=== PATIENT | female | born 1975 | race Caucasian/White ===

== ENCOUNTER 2017-05-07 08:53 | Emergency (ER) | payer OTHER ==
[~2017-05-07] VITALS: Ht 170.2 cm; Wt 120.2 kg
[~2017-05-07 08:53] MED LIST: AMITRIPTYLINE 550 MG PO; ASPIRIN 81MG TA81 MG PO; B12 INJ.,1000 MCG/M IM; BYETTA250 MCG/ML SC; CIPRO 500MG TA500 MG PO; CLINDAMYCIN150 MG PO; FLEXERIL10 MG PO; FOLIC ACID 1MG T1 MG PO; GLIMEPIRIDE 2MG2 MG PO; GLUCAGEN HYPOKIT1 MG IJ; IMITREX100 MG PO; KEFLEX 500MG.500 MG PO; LANTUS INS100 UNITS/ SC; LISINOPRIL 10MG10 MG PO; LOPID 600MG TA600 MG OR; LORATADINE 10MG10 M1 PO; LYRICA 100 MG100 MG PO; METFORMIN1000 MG PO; MUCINEX1200 MG PO; OMEPRAZOLE20 MG PO; PROMETHAZINE D118 ML PO; PROVENTIL0.09 MG/A1 IH; PYRIDIUM200 M2 PO; QVAR0.08 MG/AC IH; VENTOLIN H0.09 MG/AC IH; VITAMIN D22000 IU PO
--- OUTSIDE RECORDS SUMMARY | 2017-05-07 08:57 | External Medical Summary Rpt | CCD ---
Author Author , ASHLEE ROSADO Address Unknown Phone [email or web address] Purpose Continuity of Care Document - through 2016
--- OUTSIDE RECORDS SUMMARY | 2017-05-07 08:57 | External Medical Summary Rpt | CCD ---
Demographics Preferred Language Estonian Marital Status Unknown Orthodoxy Affiliation Unknown Race Unknown Ethnic Group Unknown Author Author , ASHLEE ROSADO Address Unknown Phone Immunization No patient found.
--- OUTSIDE RECORDS SUMMARY | 2017-05-07 08:57 | External Medical Summary Rpt | CCD ---
Author Author SAVANAH Address Unknown Phone [email or web address] Purpose Continuity of Care Document - through 2016
--- OUTSIDE RECORDS SUMMARY | 2017-05-07 08:57 | External Medical Summary Rpt | CCD ---
Author Author SAVANAH Address Unknown Phone [email or web address] Purpose Continuity of Care Document - through 2016
--- OUTSIDE RECORDS SUMMARY | 2017-05-07 08:57 | External Medical Summary Rpt | CCD ---
Demographics Preferred Language Yoruba Marital Status Unknown Evangelical Affiliation Unknown Race Unknown Ethnic Group Unknown Author Author , ASHLEE ROSADO Address Unknown Phone Immunization No patient found.
--- OUTSIDE RECORDS SUMMARY | 2017-05-07 08:57 | External Medical Summary Rpt ---
Author Author ASHLEE Morin, [employer] Address Unknown Phone Unavailable
--- OUTSIDE RECORDS SUMMARY | 2017-05-07 08:57 | External Medical Summary Rpt | CCD ---
Author Author , ASHLEE ROSADO Address Unknown Phone Purpose Continuity of Care Document - through 2016
[2017-05-07] MEDS ORDERED: BACTRIM DS 8001 TA1 PO (09:28)
[2017-05-07] MEDS ORDERED: PYRIDIUM200 M2 PO (09:28)
--- NOTE | 2017-05-07 09:29 | Urgent Treatment Center Report ---
History of Present Issue Date/Time Seen by Provider 05/07/17 09 Visit Reason Pt arrived:Walked Presenting Problem:PT STATES SHE FEELS LIKE SHE HAS A BLADDER INFECTION PT C/O PAIN AND URGENCY Location if Accident: Onset of symptoms date/time:/ or onset unknown for:MEDICAL HX UNKNOWN Have you (or family members/close friends) recently traveled outside the [place]? N If Yes, where/when: Have you had exposure to infectious disease within the past month? TB? Other? Specify: c/o "I think a bladder infection". Here visiting from [place] with dysuria and hematuria, small amount seen only occasionally. Started w/ intermittent hematuria 4 days ago. Burning followed soon after and the worst at end urination. Urinary frequency and urgency started yesterday. Urine cloudy, no odor. No fever, vomiting, abdominal pain. Hasn't taken or tried anything for symptoms. Also requesting refill on albuterol inhaler used for asthma. No symptoms currently but ran out and doesn't return to [place] until 05/15. Afraid not to have a rescue inhaler. Source patient Exam Limitations no limitations ALLERGIES Coded Allergies: fluoxetine (From PROZAC) (Mild, NA-NAUSEA 08/30/15) ketorolac (From TORADOL) (Mild, NA-NAUSEA 08/30/15) duloxetine (From CYMBALTA) (08/30/15) Home Medications Active Scripts Phenazopyridine HCl (Pyridium) 200 MG PO TID #10 TAB Prov: 08/30/15 ALBUTEROL (Proventil Hfa Inhaler) 1-2 PUFF IH Q4-6H PRN PRN SOA, wheezing #1 CAN Prov: 08/26/16 PROMETHAZINE/DEXTROMETHORPHAN (Promethazine-Dm Syrup) 10 ML PO QHSP PRN cough #60 ML Prov: 08/26/16 Guaifenesin (Mucinex) 1,200 MG PO BID #14 TAB Prov: 08/26/16 Reported Medications ERGOCALCIFEROL (VITAMIN D2) (Vitamin D2) 50,000 IUNITS PO WEEKLY LISINOPRIL (Lisinopril) 10 MG PO DAILY ASPIRIN (Aspirin) 81 MG PO DAILY Gemfibrozil (Lopid 600MG Tablet (Generic)) 600 MG OR DAILY Pregabalin (Lyrica 100Mg) 150 MG PO TID Amitriptyline Hcl (Amitriptyline) 100 MG PO QHS METFORMIN HCL (Metformin) 1,000 MG PO BID FOLIC ACID (Folic Acid) 1 MG PO DAILY Vitamin B12 (Cyanocobalamin Injection) 1,000 MCG IM WEEKLY Loratadine (Loratadine 10MG Tablet) 10 MG PO DAILY Omeprazole (Omeprazole 20MG) 20 MG PO DAILY Insulin Glargine (Lantus Insulin Vial) 40 UNITS SC QHS ALBUTEROL (Ventolin Hfa) 2 PUFFS IH Q6H6 GLUCAGON,HUMAN RECOMBINANT (Glucagen) 1 MG IJ DAILYP PRN DIABETES Cyclobenzaprine Hcl (Flexeril) 5 MG PO DAILY History Medical History General CAD? No Angina: No [place]: No Hypertension? Yes Hyperlipidemia? No CHF? No DVT? No PE? No COPD? Yes Asthma? Yes Anemia? No GERD? No Gastric ulcers? No GI Bleed? No Hernia? No Thyroid Problems? No Hypothyroidism? No CVA? No Seizures? No Diabetes? Yes Insulin Dependent: Yes Insulin Pump: No Home FSBS? No Renal Insuffiency? No UTI? No Stones? Yes BPH? No GB Disease: No Nephritic Syndrome? No Asplenia? No Hepatitis? No Sickle Cell Disease? No Arthritis? No Migraines? No Cataracts? No Glaucoma? No MRSA? No HIV? No TB? No Anxiety? No Depression? No Cancer? No Immunization HX DT/Tetanus > 10 Years Ago Surgical Hx Previous Surgery?Y HYSTERECTOMY Exploratory Laparoscopy Social History Smoking Hx Smoker: Current Every Day Smoker Tobacco: Yes Type Cigarettes Packs/day < 1 Pack Alcohol Alcohol: No Review of Systems All Other Systems Reviewed and Negative Constitutional see HPI, denies chills, denies malaise Respiratory denies cough, denies shortness of breath, denies wheezing Cardiovascular denies chest pain Gastrointestinal see HPI, denies nausea Genitourinary see HPI, hesitancy. denies: discharge, abnormal vaginal bleeding. Musculoskeletal denies back pain Psychiatric/Neurological denies headache Physical Exam Vital Signs Vital Signs Date Time Temp Pulse Resp B/P Pulse O2 O2 Flow FiO2 Ox Delivery Rate 05/07 0902 98.3 111 20 125/79 96 General Appearance no apparent distress, obese Respiratory Status No: respiratory distress, productive cough, non productive cough. Cardiovascular no peripheral edema Gastrointestinal normal bowel sounds, non tender, soft, no suprapubic tenderness , no bladder distention Back no CVA tenderness Neurologic alert, oriented x 3 Skin normal color, warm/dry Medical Decision Making LABS/Meds/Orders Pt receiving controlled substance in ED? No Results/Orders Orders Procedure Date/time Status [facility] URINE DIPSTICK 05/07 927 Active CULTURE, URINE 05/07 925 Active Departure Departure Time of Disposition 925 Disposition DC Home or Self Care(routine) Clinical Impression Primary Impression: UTI (urinary tract infection) Qualifiers: Urinary tract infection type: site unspecified Hematuria presence: with hematuria Qualified Code: N39.0 - Urinary tract infection, site not specified Secondary Impressions: History of asthma, Medication refill Condition STABLE Referrals NO REFERRAL Be sure to follow up with your primary care doctor anytime for new or worsening symptoms, AND in 48 hours for urine culture results AND in 10-14 days to repeat UA and ensure infection resolved and blood no longer present. Since [place] of state, I would get results of urine culture before returning home as we discussed. Patient Instructions DI for Hematuria, DI for Urinary Tract Infection (UTI) Additional Instructions * increase fluids, Water and NOT soda or tea * Start antibiotic immediately and be sure to take as ordered for the FULL length of time although you should start to see improvement over the next 48 hours. * pyridium as needed. Remember this will turn your urine ORANGE, this is normal but will stain whatever it gets on. this includes tears and contacts. Try not to wear contacts due to risk of staining orange. * You should not need the pyridium longer than 48 hours. If so, follow up with primary care to review urine culture and ensure antibiotic is adequate * Be SURE to follow up anytime for new or worsening symptoms, AND in 48 hours for urine culture results AND in 10-14 days to repeat UA and ensure infection resolved and blood no longer present. * Be sure to let your PCP (or whoever you follow up with) know we sent urine culture so they can request records and ensure you are on the appropriate antibiotic if you are not getting better or getting worse!!! * Courtesy refill on inhaler until you return home. BE SURE to follow up with primary care for additional refills. Discharge Counseling Counseled pt/family regarding diagnosis, test results, medications/RX, home care, follow up needs Prescriptions Current Visit Scripts SULFAMETHOXAZOLE W/TRIMETHOPRI (Bactrim Ds Tab) 1 TABLET PO BID #14 TAB Phenazopyridine HCl (Pyridium) 200 MG PO TID PRN burning with urination #6 TAB ALBUTEROL (Proventil Hfa Inhaler) 1-2 PUFF IH Q4-6H PRN PRN SOA, wheezing #1 CAN at 0936
[2017-05-07] MEDS ORDERED: PROVENTIL0.09 MG/A1 IH (09:33)
[2017-05-07 09:34] VITALS: BP 125/79
[2017-05-07 09:38] LABS: URINE BILIRUBIN - DIPSTICK NEGATIVE (NEG)
[2017-05-07 09:39] LABS: URINE BLOOD 3+ (NEG)
[2017-05-17] MEDS ORDERED: CIPRO 500MG TA500 MG PO (14:53)
[2017-05-17] MEDS ORDERED: PYRIDIUM100 M2 PO (14:55)
== END 2017-05-07 09:42 | disposition home or self-care (01) ==
LOC: UTC 08:53
PROVIDERS: Nurse Practitioner Family
DX: N39.0 Urinary tract infection, site not specified (principal); E11.9 Type 2 diabetes mellitus without complications; Z79.4 Long term (current) use of insulin; J44.9 Chronic obstructive pulmonary disease, unspecified; I10 Essential (primary) hypertension